=== PATIENT | male | born 1980 | race Caucasian/White ===

== ENCOUNTER 2021-04-14 21:40 | Emergency (ER) | payer OTHER ==
[2021-04-14] MEDS ORDERED: Dexamethasone 10 MG/ML SDV IM STA (22:13)
[2021-04-14] MEDS ORDERED: Ketorolac 30 MG/ML SDV IM ONE (22:13)
--- NOTE | 2021-04-14 22:20 | EDM.PDOC ---
ED HPI GENERAL MEDICAL PROBLEM - General Chief Complaint: ENT Problem Stated Complaint: SORE THROAT Time Seen by Provider: 04/14/21 22:04 Source of Information: Reports: Patient History Limitations: Reports: No Limitations - History of Present Illness INITIAL COMMENTS - FREE TEXT/NARRATIVE: Patient is a 40-year-old male presents today for throat pain. Patient states she has recurrent throat issues nose. His tonsils removed but has not been able to schedule appointment as he lives in [place] but he works in [place]. His doctor gave him clindamycin which is been taking it but it still hurts so much is having difficulty swallowing. Having trouble drinking water as well due to the pain. He denies any difficulty breathing denies any fever chills or other complaints. Throat Pain Score (Numeric/FACES): 7 - Related Data Allergies Allergy/AdvReac Type Severity Reaction Status Date / Time No Known Allergies Allergy Verified 04/14/21 22:06 Home Meds: Home Meds Clindamycin HCl 300 mg PO QID 04/14/21 [History] Social & Family History - Tobacco Use Second Hand Smoke Exposure: No - Caffeine Use Caffeine Use: Reports: None - Recreational Drug Use Recreational Drug Use: No ED ROS ENT - Review of Systems Review Of Systems: See Below Constitutional: Reports: No Symptoms HEENT: Reports: Throat Pain, Throat Swelling Respiratory: Reports: No Symptoms Endocrine: Reports: No Symptoms GI/Abdominal: Reports: No Symptoms : Reports: No Symptoms Musculoskeletal: Reports: No Symptoms Skin: Reports: No Symptoms Neurological: Reports: No Symptoms Psychiatric: Reports: No Symptoms Hematologic/Lymphatic: Reports: No Symptoms Immunologic: Reports: No Symptoms ED EXAM, ENT - Physical Exam Exam: See Below Exam Limited By: No Limitations General Appearance: Alert, WD/WN, No Apparent Distress Mouth/Throat: Throat Pain. No: Tongue Swelling, Tonsillar Erythema, Tonsillar Exudates Head: Atraumatic, Normocephalic Respiratory/Chest: No Respiratory Distress Cardiovascular: Normal Peripheral Pulses, Regular Rate, Rhythm GI/Abdominal: Normal Bowel Sounds, Soft, Non-Tender Extremities: Normal Inspection, Normal Range of Motion Neurological: Alert, Oriented, Normal Cognition, Normal Gait Course - Vital Signs Last Recorded V/S: Last Vital Signs Temp 99.7 F 04/14/21 22:03 Pulse 99 04/14/21 23:02 Resp 20 04/14/21 22:03 BP 101/69 04/14/21 23:02 Pulse Ox 93 L 04/14/21 23:02 - Orders/Labs/Meds Orders: Active Orders 24 hr Category Date Time Status Sodium Chloride 0.9% [Normal Saline] 1,000 ml Med 04/14/21 22:47 Active IV NOW Medication Orders Sodium Chloride (Normal Saline) 1,000 mls @ 999 mls/hr IV NOW STA Stop: 04/14/21 23:47 Last Admin: 04/14/21 22:49 Dose: 999 mls/hr Documented by: MADDY Meds: Medications Generic Name Dose Route Start Last Admin Trade Name Freq PRN Reason Stop Dose Admin Sodium Chloride 1,000 mls @ 999 mls/hr 04/14/21 22:47 04/14/21 22:49 Normal Saline IV 04/14/21 23:47 999 mls/hr NOW STA Administration Discontinued Medications Generic Name Dose Route Start Last Admin Trade Name Freq PRN Reason Stop Dose Admin Dexamethasone 10 mg 04/14/21 22:13 04/14/21 22:16 Dexamethasone 10 Mg/Ml Sdv IM 04/14/21 22:14 10 mg NOW STA Administration Ketorolac Tromethamine 30 mg 04/14/21 22:13 04/14/21 22:16 Ketorolac 30 Mg/Ml Sdv IM 04/14/21 22:14 30 mg ONETIME ONE Administration - Re-Assessments/Exams Free Text/Narrative Re-Assessment/Exam: 04/14/21 23:30 Patient feels better able to tolerate p.o. will be discharged home. Departure - Departure Time of Disposition: 23:30 Disposition: Home, Self-Care 01 Condition: Good Clinical Impression: Pharyngitis - Discharge Information *PRESCRIPTION DRUG MONITORING PROGRAM REVIEWED*: Not Applicable *COPY OF PRESCRIPTION DRUG MONITORING REPORT IN PATIENT GUERLINE: Not Applicable Instructions: Sore Throat, [id number] Referrals: PCP,None [Primary Care Provider] - Forms: ED Department Discharge Additional Instructions: The following information is given to patients seen in the emergency department who are being discharged to home. This information is to outline your options for follow-up care. We provide all patients seen in our emergency department with a follow-up referral. The need for follow-up, as well as the timing and circumstances, are variable depending upon the specifics of your emergency department visit. If you don't have a primary care physician on staff, we will provide you with a referral. We always advise you to contact your personal physician following an emergency department visit to inform them of the circumstance of the visit and for follow-up with them and/or the need for any referrals to a consulting specialist. The emergency department will also refer you to a specialist when appropriate. This referral assures that you have the opportunity for follow-up care with a specialist. All of these measure are taken in an effort to provide you with optimal care, which includes your follow-up. Under all circumstances we always encourage you to contact your private physician who remains a resource for coordinating your care. When calling for follow-up care, please make the office aware that this follow-up is from your recent emergency room visit. If for any reason you are refused follow-up, please contact the [facility] Emergency Department at and asked to speak to the emergency department charge nurse. Please follow up with your primary care physician. If you do not have a primary care physician, see below: [facility] [address] [place] [id number] My [facility] [address] [place] [id number] You are seen today for throat pain. Your doctor gave you clindamycin and recommend you continue his medication. We gave you Decadron which is a steroid and also Toradol developed the pain and swelling in your throat. Please continue to stay hydrated if you have any other concerning signs or symptom please return to the ED otherwise follow-up with your primary care physician. Sepsis Event Note (ED) - Evaluation Sepsis Screening Result: No Definite Risk - Focused Exam Vital Signs: Vital Signs Temp Pulse Resp BP Pulse Ox 04/14/21 23:02 99 101/69 93 L 04/14/21 22:32 100 103/70 94 L 04/14/21 22:03 99.7 F 98 20 115/69 94 L - My Orders Last 24 Hours: My Active Orders 04/14/21 22:47 Sodium Chloride 0.9% [Normal Saline] 1,000 ml IV NOW - Assessment/Plan Last 24 Hours: My Active Orders 04/14/21 22:47 Sodium Chloride 0.9% [Normal Saline] 1,000 ml IV NOW Plan: Pt is a 40-year-old male presents today for throat pain. Patient has recurrent throat issues currently on clindamycin it is sent him today. We will provide Decadron and Toradol for pain and symptomatic relief.
[2021-04-14] MEDS ORDERED: Sodium Chloride 0.9% 1,000 ML IV STA (22:47)
== END 2021-04-14 23:45 | disposition home or self-care (01) ==
LOC: MW.ED 21:40
DX: J02.9 Acute pharyngitis, unspecified (principal)
CPT/HCPCS: 96372; 99282; J1100; J1885; J7030